=== PATIENT | female | born 1995 | race Caucasian/White ===

== ENCOUNTER 2020-02-14 11:23 | Outpatient (CLI) | payer BC, SELFPAY ==
[2020-02-14 13:09] LABS: Rubella IgG Antibody 13.3 IU/ML
== END 2020-02-14 11:24 | disposition home or self-care (01) ==
PROVIDERS: Visit Provider Obstetrics & Gynecology
DX: Z31.9 Encounter for procreative management, unspecified (principal)
CPT/HCPCS: 36415; 86762